=== PATIENT | female | born 1990 | race American Indian/Alaskan Native ===

== ENCOUNTER 2016-12-25 10:50 | Emergency (ER) | payer MEDICAID ==
[2016-12-25 11:04] VITALS: BP 142/83
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
--- NOTE | 2016-12-25 15:58 | XRay Report ---
RIGHT FOREARM: AP and lateral views of the forearm demonstrate normal mineralization and contours for this patient's age. No destructive changes are noted and the adjacent soft tissues are normal. IMPRESSION: Normal right forearm.
== END 2016-12-25 16:23 | disposition home or self-care (01) ==
LOC: ED 10:50
DX: M79.631 Pain in right forearm (principal); F17.200 Nicotine dependence, unspecified, uncomplicated; W13.8XXA Fall from, out of or through other building or structure, initial encounter; Y93.89 Activity, other specified; Y99.9 Unspecified external cause status; Y92.89 Other specified places as the place of occurrence of the external cause
CPT/HCPCS: 81025